=== PATIENT | female | born 1985 | race Caucasian/White ===

== ENCOUNTER 2018-11-25 10:00 | Inpatient (IN) | payer BC ==
[~2018-11-25] VITALS: Ht 160 cm; Wt 63.5 kg
[2018-11-25 10:00] VITALS: BP 138/64
--- NOTE | 2018-11-25 10:04 | NUR ---
pt ambulated to bed 12, urine cup provided to pt, report to [place] GARCES
--- NOTE | 2018-11-25 10:10 | NUR ---
Pt c/o 9/10 epigastric pain burning, nonradiating since last night. Denies NVD. LBM at 0000. DENIES N/V/D; SKIN IS PINK/WARM/DRY; AAOX4 WITH EVEN AND STEADY GAIT; LUNGS CLEAR BL; HR EVEN AND REGULAR; PT DENIES ANY FEVER, CP, SOB, OR COUGH AT THIS TIME; PATIENT STATES PAIN OF 9/10 AT THIS TIME; VSS; PATIENT POSITIONED FOR COMFORT; HOB ELEVATED; BEDRAILS UP X2; BED DOWN. ER MD MADE AWARE OF PT STATUS.
[2018-11-25] MEDS ORDERED: NACL 0.9% 1,000 ML IV SCH ×2 (11:09→13:42)
[2018-11-25] MEDS ORDERED: NACL 0.9% 1,000 ML IV ONE (11:09)
[2018-11-25] MEDS ORDERED: KETOROLAC 30 MG/ML VIAL IVP ONE (11:10)
[2018-11-25 11:25] LABS: BILIRUBIN,URINE NEGATIVE (NEGATIVE); BLOOD, URINE NEGATIVE (NEGATIVE); COLOR,URINE YELLOW (YELLOW); LEUKOCYTE ESTERASE ,URINE NEGATIVE (NEGATIVE); NITRITE, URINE NEGATIVE (NEGATIVE); PH,URINE 7.5 (5.0-9.0); UGLUCOSE NEGATIVE (NEGATIVE)
[2018-11-25 11:31] LABS: BARBITURATE, URINE NEG. ng/ml (NEG <=200); BENZODIAZEPINE, URINE NEG. ng/mL (NEG <=200); CANNABINOID, URINE NEG. ng/mL (NEG <=50); COCAINE, URINE NEG. ng/mL (NEG <=300); OPIATE, URINE NEG. ng/mL (NEG <=2000); PHENCYCLIDINE SCREEN,URINE NEG. ng/mL (NEG <=25)
[2018-11-25 11:36] LABS: APPEARANCE,URINE SLIGHTLY HAZY (CLEAR); RBC,URINE 0-5 /HPF (0-5); WBC,URINE 0-5 /HPF (0-5)
[2018-11-25 11:37] LABS: BASOPHILS % (AUTO) 0.2 % (0.0-2.0); EOSINOPHILS % (AUTO) 0.1 % (0.0-4.0); HEMATOCRIT 34.5 % (36-48); HEMOGLOBIN 11.3 g/dL (12.0-16.0); LYMPHOCYTES # (AUTO) 0.6 K/uL (2.5-16.5); LYMPHOCYTES % (AUTO) 4.9 % (20.5-51.1); MEAN CORPUSCULAR HEMOGLOBIN 26 pg (27-31); MEAN CORPUSCULAR HGB CONC 33 g/dL (33-37); MEAN CORPUSCULAR VOLUME 78.8 fL (80-94); MONOCYTES # (AUTO) 0.5 K/uL (0.8-1.0); MONOCYTES % (AUTO) 4.2 % (1.7-9.3); NEUTROPHILS # (AUTO) 11.1 K/uL (1.8-7.7); NEUTROPHILS % (AUTO) 90.6 % (42.2-75.2); PLATELET COUNT (AUTO) 318 K/uL (140-450); RED BLOOD CELL COUNT(AUTO) 4.38 MIL/uL (4.20-5.40); WHITE BLOOD COUNT (AUTO) 12.3 K/uL (4.8-10.8)
[2018-11-25 11:47] LABS: ANION GAP 15.1 (8-16); CARBON DIOXIDE 25.8 mmol/L (21-32); CREATININE 0.6 mg/dL (0.6-1.3); POTASSIUM 3.9 mmol/L (3.5-5.1)
[2018-11-25 11:53] LABS: ALBUMIN 3.7 g/dL (3.4-5.0); TOTAL BILIRUBIN 0.2 mg/dL (0.0-1.0)
--- NOTE | 2018-11-25 11:58 | NUR ---
us at bedside.
[2018-11-25] MEDS ORDERED: PIPERACILLIN/TAZOBACTAM 3.375 GM in DEXTROSE 5% 50 ML IV ONE (13:30)
[2018-11-25] MEDS ORDERED: ONDANSETRON 4 MG/2 ML VIAL IM/IVP PRN (13:35)
[2018-11-25] MEDS ORDERED: ACETAMINOPHEN 325 MG TAB PO PRN (13:35)
[2018-11-25] MEDS ORDERED: DOCUSATE SODIUM 100 MG GELCAP PO PRN ×2 (13:35→22:25)
[2018-11-25] MEDS ORDERED: HYDROcodone/APAP 7.5/325 MG 1 TAB PO PRN (13:35)
[2018-11-25] MEDS ORDERED: PIPERACILLIN/TAZOBACTAM 3.375 GM VIAL IV ONE (13:49)
[2018-11-25 14:05] LABS: PROTHROMBIN TIME 9.5 secs (10.8-13.4)
[2018-11-25 14:14] LABS: CHOL/HDL RATIO 3.5 (1-4.5); MAGNESIUM 1.9 mg/dL (1.8-2.4); PHOSPHORUS 2.7 mg/dL (2.5-4.9); THYROID STIMULATING HORMONE 0.39 uIU/mL (0.34-3.74)
[2018-11-25] MEDS ORDERED: KETOROLAC 15 MG/ML VIAL IVP PRN (14:40)
[2018-11-25] MEDS ORDERED: FERROUS SULFATE 325 MG TABEC PO SCH (14:51)
--- NOTE | 2018-11-25 15:10 | NUR ---
Patient will be admitted to care of URMILA GARCES. Admited to [facility]. Will go to room 120A. Belongings list completed. Report to URMILA GARCES.
--- NOTE | 2018-11-25 15:15 | NUR ---
RECEIVED BEDSIDE REPORT FROM ED RN FOR CONTINUITY OF CARE. PT IN STABLE CONDITION. STATES ABD PAIN IS TOLERABLE NOW. NO S/S DISTRESS. RESPIRATIONS EVEN AND UNLABORED. HEART RHYTHM REGULAR. ABDOMEN IS TENDER. SKIN INTACT. PT IS AMBULATORY WITHOUT ASSIST. IV SITE PATENT AND ASYMPTOMATIC, WILL CONNECT TO/START IVF. ALL SAFETY PRECAUTIONS IN PLACE, WILL CONTINUE TO MONITOR.
[2018-11-25 15:20] VITALS: BP 115/77
[2018-11-25] MEDS: NACL 0.9% 1,000 ML IV SCH (15:30)
--- NOTE | 2018-11-25 17:01 | NUR ---
INFORMED PT OF PLANS OF SURGERY AT 1750.
[2018-11-25] MEDS ORDERED: ROCURONIUM 50 MG/5 ML VIAL IV ONE (17:36)
[2018-11-25] MEDS ORDERED: LIDOCAINE 2% 100 MG/5 ML SYR IVP ONE (17:36)
[2018-11-25] MEDS ORDERED: PROPOFOL 200 MG/20 ML VIAL IV ONE (17:36)
[2018-11-25] MEDS ORDERED: SUCCINYLCHOLINE CHLORIDE 200 MG/10 ML VIAL IVP ONE (17:36)
[2018-11-25] MEDS ORDERED: DESFLURANE 240 ML BTL INH ONE (17:36)
[2018-11-25] MEDS ORDERED: DEXAMETHASONE 4 MG/ML VIAL ONE (17:36)
[2018-11-25] MEDS ORDERED: ONDANSETRON 4 MG/2 ML VIAL ONE (17:36)
[2018-11-25] MEDS ORDERED: KETOROLAC 30 MG/ML VIAL ONE (17:36)
[2018-11-25] MEDS ORDERED: NEOSTIGMINE 1:1000 10 MG/10 ML VIAL ONE (17:36)
[2018-11-25] MEDS ORDERED: GLYCOPYRROLATE 0.2 MG/ML VIAL ONE (17:36)
--- NOTE | 2018-11-25 17:36 | NUR ---
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 CONSENT FORMS TO GO WITH PATIENT FOR DR. PARISH TO DISCUSS W/ PATIENT BEFORE PROCEDURE.
[2018-11-25] MEDS ORDERED: MIDAZOLAM 2 MG/2 ML VIAL ONE (17:49)
[2018-11-25] MEDS ORDERED: fentaNYL 0.05 MG/ML VIAL ONE (17:49)
[2018-11-25] MEDS ORDERED: HYDROmorphone 1 MG/ML AMP IVP PRN (18:05)
[2018-11-25] MEDS ORDERED: ONDANSETRON 4 MG/2 ML VIAL IVP PRN (18:05)
[2018-11-25] MEDS ORDERED: BUPIVACAINE-MPF/EPI 0.5% 30 ML VIAL INJ ONE (18:18)
--- NOTE | 2018-11-25 19:29 | NUR ---
ENDORSED POC TO LOCOMOTIVE MECHANIC APPRENTICE RN. PT IS IN OR FOR SURGERY NOW.
--- NOTE | 2018-11-25 19:45 | NUR ---
PATIENT CAME BACK FROM OR SURGERY. PATIENT VITALS: BP 112/62, SPO2 95% ROOM AIR, RR 16, P 110, T 98.1. DENIES PAIN. WILL CONTINUE TO MONITOR.
[2018-11-25 20:00] VITALS: BP 112/62
--- NOTE | 2018-11-25 20:00 | NUR ---
INITIAL ASSESSMENT DONE. VITALS WERE TAKEN. PATIENT CONDITION STABLE. WILL CONTINUE TO MONITOR.
[2018-11-25] MEDS: PIPER/TAZO 3.375GM/D5W PREMIX 50 ML IV SCH (20:31)
--- NOTE | 2018-11-25 20:40 | NUR ---
PATIENT RECEIVED FIRST DOSE OF ZOSYN AND TOLERATED WELL. NO ASE NOTED. PATIENT COMPLAINED OF ABDOMINAL PAIN /. PRN PAIN MED ADMINISTERED. WILL CONTINUE TO MONITOR.
--- NOTE | 2018-11-25 22:00 | NUR ---
CHECKED PATIENT. PATIENT TALKING WITH THE FAMILY. NO DISTRESS NOTED. WILL CONTINUE TO MONITOR.
[2018-11-25] MEDS ORDERED: INFLUENZA VIRUS VACCINE QUAD 0.5 ML SYR IMVAC PRN (23:50)
[2018-11-26] VITALS: BP 110/63
--- NOTE | 2018-11-26 | NUR ---
VITALS WERE TAKEN. PATIENT CONDITION STABLE. NO DISTRESS NOTED. WILL CONTINUE TO MONITOR.
--- NOTE | 2018-11-26 02:00 | NUR ---
CHECKED PATIENT. PATIENT SLEEPING COMFORTABLY. RESPIRATION EVEN UNLABORED ON ROOM AIR. NO DISTRESS NOTED. WILL CONTINUE TO MONITOR.
[2018-11-26] MEDS: PIPER/TAZO 3.375GM/D5W PREMIX 50 ML IV SCH ×2 (04:13→13:20)
--- NOTE | 2018-11-26 04:46 | NUR ---
CHECKED PATIENT. PATIENT AWAKE WATCHING TV RESPIRATION EVEN UNLABORED ON ROOM AIR. NO DISTRESS NOTED. WILL CONTINUE TO MONITOR.
--- NOTE | 2018-11-26 05:59 | NUR ---
AMBULATES PATIENT TO THE BATHROOM. PATIENT PASS GAS. WILL CONTINUE TO MONITOR
[2018-11-26] MEDS: NACL 0.9% 1,000 ML IV SCH ×2 (06:01→15:21)
[2018-11-26 06:39] LABS: BASOPHILS % (AUTO) 0.1 % (0.0-2.0); HEMATOCRIT 30.6 % (36-48); HEMOGLOBIN 10.1 g/dL (12.0-16.0); LYMPHOCYTES # (AUTO) 1.5 K/uL (2.5-16.5); LYMPHOCYTES % (AUTO) 15.7 % (20.5-51.1); MEAN CORPUSCULAR HEMOGLOBIN 26 pg (27-31); MEAN CORPUSCULAR HGB CONC 33 g/dL (33-37); MEAN CORPUSCULAR VOLUME 78.8 fL (80-94); MONOCYTES # (AUTO) 0.6 K/uL (0.8-1.0); MONOCYTES % (AUTO) 5.9 % (1.7-9.3); NEUTROPHILS # (AUTO) 7.6 K/uL (1.8-7.7); NEUTROPHILS % (AUTO) 78.3 % (42.2-75.2); PLATELET COUNT (AUTO) 313 K/uL (140-450); RED BLOOD CELL COUNT(AUTO) 3.88 MIL/uL (4.20-5.40); RED CELL DISTRIBUTION WIDTH 15.9 % (11.6-13.7); WHITE BLOOD COUNT (AUTO) 9.7 K/uL (4.8-10.8)
[2018-11-26 06:56] LABS: ANION GAP 12.8 (8-16); CARBON DIOXIDE 25.5 mmol/L (21-32); CREATININE 0.7 mg/dL (0.6-1.3); POTASSIUM 3.3 mmol/L (3.5-5.1)
--- NOTE | 2018-11-26 07:10 | NUR ---
ENDORSED PATIENT TO DAY SHIFT NURSE FOR CONTINUITY OF CARE. PATIENT IS STABLE.
--- NOTE | 2018-11-26 07:13 | NUR ---
RECEIVED BEDSIDE REPORT FROM ED RN FOR CONTINUITY OF CARE. PT IN STABLE CONDITION. STATES ABD PAIN IS TOLERABLE NOW 01/05, DENIES NEED FOR PAIN MEDICATION. NO S/S DISTRESS. RESPIRATIONS EVEN AND UNLABORED. HEART RHYTHM REGULAR. ABDOMEN IS TENDER. S/P LAP DANNY, 3 INCISION SITES COVERED WITH BANDAGES. PT IS AMBULATORY WITHOUT ASSIST. IV SITE PATENT AND ASYMPTOMATIC, INFUSING IVF PER MD ORDERS. ALL SAFETY PRECAUTIONS IN PLACE, WILL CONTINUE TO MONITOR. Addendum: 11/26/18 at 0749 by Melba Coto Meng, RN PATIENT HAS VOIDED, AMBULATED, AND PASSED GAS SINCE THE SURGERY.
[2018-11-26 08:00] VITALS: BP 104/64
[2018-11-26] MEDS ORDERED: FERROUS SULFATE 325 MG TABEC PO SCH (08:00)
[2018-11-26 08:22] LABS: T4 (THYROXINE) 7.7 ug/dL (4.5-12.0)
--- NOTE | 2018-11-26 08:59 | NUR ---
ADMINISTERED SCHEDULED MEDICATIONS. PT REFUSED HEPARIN. PT IS AMBULATORY, AND HAS BEEN AMBULATORY. SCD'S ON WHILE IN BED.
[2018-11-26] MEDS ORDERED: LACTOBACILLUS RHAMNOSUS GG 1 EACH CAP PO SCH (09:00)
--- NOTE | 2018-11-26 09:03 | NUR ---
PATIENT CONTINUES TO STATE ABD PAIN TOLERABLE, DENIES NEED FOR PAIN MEDICATION.
[2018-11-26] MEDS ORDERED: POTASSIUM CHLORIDE 10 MEQ TABER PO SCH (09:05)
--- NOTE | 2018-11-26 10:20 | NUR ---
ADMINISTERED KDUR. PATIENT SITTING UP IN BED, STATES TOLERABLE PAIN, WILL CONTINUE TO MONITOR.
--- NOTE | 2018-11-26 11:44 | NUR ---
PATIENT AMBULATING IN [facility].
--- NOTE | 2018-11-26 13:21 | NUR ---
SCHEDULED ZOSYN ADMINISTERED. PATIENT STATES SHE PASS BEEN PASSING GAS AND TOLERATING DIET.
--- NOTE | 2018-11-26 15:01 | NUR ---
PATIENT AMBULATING IN [facility] WITH FAMILY MEMBER BESIDE HER.
[2018-11-26] MEDS ORDERED: FER325 PO (15:53)
[2018-11-26] MEDS ORDERED: CIPR500T4 PO (15:53)
[2018-11-26] MEDS ORDERED: ACET-9529 PO (15:54)
[2018-11-26 16:00] VITALS: BP 110/67
--- NOTE | 2018-11-26 17:12 | NUR ---
DR. MARES GAVE D/C EDUCATION TO PATIENT AND FAMILY MEMBERS AT BEDSIDE. ANSWERED ALL QUESTIONS. PT AND FAMILY MEMBERS VERBALIZED COMPLETE UNDERSTANDING.
--- NOTE | 2018-11-26 17:25 | NUR ---
DISCHARGE PAPERWORK, INCLUDING INSTRUCTIONS TO F/U WITH PCP WITHIN 3 DAYS, GIVEN TO PATIENT. NEW PRESCRIPTION/MEDICATION TEACHING AND MEDICATION RECONCILIATION TEACHING GIVEN TO PATIENT AND FAMILY MEMBERS AT BEDSIDE. INCISION CARE EDUCATION PROVIDED. PT AND FAMILY MEMBERS AT BEDSIDE VERBALIZED COMPLETE UNDERSTANDING OF ALL D/C TEACHING. D/C PHOTOS TAKEN, WOUND CLEANED, AND NEW BANDAGES APPLIED. PATIENT REFUSED FLU VACCINE- STATES SHE WILL F/U WITH PCP. IV SITE REMOVED WITH MINIMAL BLOOD LOSS AND LUMEN COMPLETELY INTACT. ID BANDS REMOVED. ALL PERSONAL BELONGINGS ARE WITH PATIENT. PATIENT DISCHARGED VIA WHEELCHAIR AND WILL GO HOME WITH FAMILY MEMBER VIA PRIVATE VEHICLE.
[2018-11-28 06:14] LABS: FERRITIN 20 ng/mL (15-150); FOLIC ACID > 20.00 ng/mL (>3.0)
== END 2018-11-26 17:25 | disposition home or self-care (01) | DRG 343 ==
LOC: MED 10:00 → MTU 13:32
PROVIDERS: ADMIT General Practice; ATTEND General Practice
PROC: 0DTJ4ZZ Resection of Appendix, Percutaneous Endoscopic Approach (ICD-10-PCS; principal; 2018-11-25 17:30)
DX: K35.80 Unspecified acute appendicitis (principal); D50.9 Iron deficiency anemia, unspecified; E87.6 Hypokalemia
CPT/HCPCS: 36415; 71045; 76856; 80048; 80053; 80305; 81001; 81025; 82150; 82374; 82607; 82728; 82746; 82977; 83036; 83540; 83605; 83690; 83735; 83880; 84100; 84436; 84443; 85025; 85045; 85610; 85730; 87040; 87081; 87086; 88304; 93005; 96361; 96365; 96375; 99285; J0330; J1100; J1170; J1644; J1885; J2001; J2250; J2405; J2543; J2704; J2710; J3010; J3490; J7030; Q0092